=== PATIENT | female | born 1970 | race African-American/Black ===

== ENCOUNTER 2016-10-15 20:19 | Emergency (ER) | payer OTHER ==
[~2016-10-15] VITALS: Ht 165.1 cm; Wt 81.7 kg
[~2016-10-15 20:19] MED LIST: IRON159 MG; LIPITOR10 MG PO; PHENERGAN 25 MG25 M1 PO; PRILOSEC 20 MG20 MG PO; ULTRAM 50MG TAB50 MG PO
[2016-10-15 20:31] VITALS: BP 160/92
[2016-10-15] MEDS ORDERED: ZOCOR20 MG PO (20:34)
[2016-10-15] MEDS ORDERED: NAPROSYN500 MG PO (21:46)
[2016-10-15] MEDS ORDERED: NORFLEX100 MG PO (21:46)
[2016-10-15] MEDS ORDERED: ACYCLOVIR 400400 MG PO (21:46)
== END 2016-10-15 21:48 | disposition home or self-care (01) ==
LOC: ER 20:19
DX: M54.6 Pain in thoracic spine (principal); E78.00 Pure hypercholesterolemia, unspecified

== ENCOUNTER 2018-06-12 17:58 | Emergency (ER) | payer OTHER ==
[~2018-06-12] VITALS: Ht 165.1 cm; Wt 81.7 kg
[~2018-06-12 17:58] MED LIST changes: +ACYCLOVIR 400400 MG PO; +NAPROSYN500 MG PO; +NORFLEX100 MG PO; +ZOCOR20 MG PO
[2018-06-12] MEDS ORDERED: FLONASE 0.05%50 MCG NASAL (18:07)
[2018-06-12] MEDS ORDERED: ALLERGY EYE DROP5 ML OPHTHALMIC (19:05)
[2018-06-12] MEDS ORDERED: PREDNISONE 20 M20 MG PO (19:05)
[2018-06-12 19:07] VITALS: BP 174/75
[2018-06-12] MEDS ORDERED: HYDROCHLOROTH12.5 M1 PO (19:15)
== END 2018-06-12 19:19 | disposition home or self-care (01) ==
LOC: ER 17:58
DX: J30.9 Allergic rhinitis, unspecified (principal); H10.13 Acute atopic conjunctivitis, bilateral; E78.00 Pure hypercholesterolemia, unspecified

== ENCOUNTER 2018-12-13 12:01 | Emergency (ER) | payer OTHER ==
[~2018-12-13] VITALS: Ht 165.1 cm; Wt 79.4 kg
[~2018-12-13 12:01] MED LIST changes: +ALLERGY EYE DROP5 ML OPHTHALMIC; +FLONASE 0.05%50 MCG NASAL; +HYDROCHLOROTH12.5 M1 PO; +PREDNISONE 20 M20 MG PO
[2018-12-13] MEDS ORDERED: ZOCOR20 MG PO (12:52)
[2018-12-13 12:55] LABS: URINE BILIRUBIN NEGATIVE (Negative); URINE BLOOD 1+ (Negative); URINE CLARITY CLEAR; URINE COLOR YELLOW; URINE GLUCOSE-RANDOM* NEGATIVE (Negative); URINE KETONES NEGATIVE (Negative); URINE LEUKOCYTES-REFLEX NEGATIVE (Negative); URINE NITRITE-REFLEX NEGATIVE (Negative); URINE PROTEIN (DIPSTICK) NEGATIVE (Negative); URINE UROBILINOGEN 0.2 E.U./dl (0.2-1.0)
[2018-12-13 12:56] LABS: HEMOGLOBIN 12.4 gm/dL (12.0-15.0); MCH 31.4 pg (26.0-34.0); MCHC 33.4 g/dL (28.0-37.0); MCV 93.9 fL (80.0-100.0); PLATELET COUNT 194 thou/uL (150-400); RBC 3.94 mil/uL (4.20-5.00); RDW 24.7 % (10.5-14.5)
[2018-12-13 13:02] LABS: ANION GAP 7 mmol/L (7-16); BUN 6 mg/dL (7-18); CALCIUM 8.9 mg/dL (8.5-10.1); CHLORIDE 101 mmol/L (98-107); CO2 30 mmol/L (21-32); CREATININE 0.8 mg/dL (0.6-1.0); GLUCOSE 97 mg/dL (74-106); POTASSIUM 3.2 mmol/L (3.5-5.1); SODIUM 138 mmol/L (136-145)
[2018-12-13 13:05] LABS: BACTERIA-REFLEX None Seen /HPF (None Seen); CASTS None Seen /LPF (None Seen); CRYSTALS None Seen /LPF (None Seen); MUCUS 4-6 Moderate strn/LPF (None Seen); SQUAMOUS 4-10 Moderate /LPF (0-3); URINE RBC 0-2 Rare /HPF (0-2); URINE WBC-REFLEX 0-5 Rare /HPF (0-5)
[2018-12-13 13:12] LABS: ALBUMIN 3.5 g/dL (3.4-5.0); SGOT 33 U/L (15-37); SGPT 31 U/L (30-65); TOTAL BILIRUBIN 0.2 mg/dL (<0.1-1.0); TOTAL PROTEIN 7.2 g/dL (6.4-8.2); TROPONIN-I <0.06 ng/mL (<0.06)
[2018-12-13 13:23] LABS: ABSOLUTE NEUTROPHILS 3.8 thou/uL (1.4-8.2)
[2018-12-13 13:24] LABS: ANISOCYTOSIS 2+; LARGE PLATELETS SEVERAL; POLYCHROMASIA 1+
[2018-12-13] MEDS ORDERED: VALIUM2 MG PO (13:35)
[2018-12-13] MEDS ORDERED: ZOFRAN ODT4 MG DISSOLVE (13:35)
[2018-12-13 13:50] VITALS: BP 135/71
--- NOTE | 2018-12-14 11:51 | EKG ---
[address] [address] [place] [address] ELECTROCARDIOGRAM REPORT Name: PATSY MASON [facility]ENTER[id number] ������������������ Admission: 12/13/18 ������������������ Attend Phys: Discharge: 12/13/18 ������������������ Date of : 68 Report #: [id number] ����������������������������������������������������������������� [id number] THIS REPORT FOR: //name// [facility] ED Test Date: 2018-12-13 Test Time: 12:09:26 Pat Name: PATSY MASON Department: Room: Gender: F [employer]: HAYDEE : 1970 Requested By: Ronak Hunter Order Number: [id number] MD: Daniel Mckeon Measurements Intervals [place] Rate: 88 P: -4 [place]: 165 QRS: 16 QRSD: 87 T: 54 QT: 380 QTc: 460 Interpretive Statements Sinus rhythm Low voltage, precordial leads Nonspecific ST segment abnormalities Compared to ECG 11/30/2012 04:15:19 Low QRS voltage now present Poor R-wave progression no longer present Electronically Signed On 12-14-2018 11:50:57 CDT by Daniel Mckeon [email or web address] ��������������������������������������������� <ELECTRONICALLY SIGNED> ���������������������������������������� By: Daniel Mckeon MD ��������������������������������������������� 12/14/18 1150 1209 120 Daniel Mckeon MD /SASHA
== END 2018-12-13 13:50 | disposition home or self-care (01) ==
LOC: ER 12:01
PROVIDERS: Emergency Medicine
DX: R42 Dizziness and giddiness (principal); R11.2 Nausea with vomiting, unspecified; I10 Essential (primary) hypertension; E78.00 Pure hypercholesterolemia, unspecified

== ENCOUNTER 2019-10-03 20:48 | Emergency (ER) | payer OTHER ==
[~2019-10-03] VITALS: Ht 165.1 cm; Wt 81.7 kg
[~2019-10-03 20:48] MED LIST changes: +VALIUM2 MG PO; +ZOFRAN ODT4 MG DISSOLVE
[2019-10-03 21:45] LABS: ABSOLUTE NEUTROPHILS 3.5 thou/uL (1.4-8.2); EOSINOPHILS 1.3 % (0.0-3.0); HEMOGLOBIN 12.3 gm/dL (12.0-15.0); LYMPHOCYTES 38.9 % (24.0-44.0); MCH 29.3 pg (26.0-34.0); MCHC 33.1 g/dL (28.0-37.0); MCV 88.6 fL (80.0-100.0); MONOCYTES 5.3 % (1.0-8.0); PLATELET COUNT 185 thou/uL (150-400); POLYS 53.5 % (36.0-66.0); RBC 4.18 mil/uL (4.20-5.00); RDW 25.6 % (10.5-14.5); WBC 6.6 thou/uL (4.0-11.0)
[2019-10-03 21:53] LABS: CALCIUM 9.1 mg/dL (8.5-10.1); CREATININE 0.9 mg/dL (0.6-1.0); MAGNESIUM 2.2 mg/dL (1.8-2.4)
[2019-10-03 21:54] LABS: POTASSIUM 2.7 mmol/L (3.5-5.1)
[2019-10-03 22:15] LABS: LARGE PLATELETS OCCASIONAL
[2019-10-03 22:16] LABS: ANISOCYTOSIS 3+
[2019-10-03] MEDS ORDERED: KLOR-CON 1010 MEQ PO (22:53)
[2019-10-03 23:08] VITALS: BP 147/87
== END 2019-10-03 23:09 | disposition home or self-care (01) ==
LOC: ER 20:48
PROVIDERS: Emergency Medicine
DX: E87.6 Hypokalemia (principal); R10.9 Unspecified abdominal pain; I10 Essential (primary) hypertension; E78.00 Pure hypercholesterolemia, unspecified; Z79.899 Other long term (current) drug therapy

== ENCOUNTER → 2020-01-04 | Outpatient (CLI) | payer OTHER ==
[~2020-01-04] MED LIST changes: +KLOR-CON 1010 MEQ PO
== END ==
LOC: BC 09:54 → NUC 13:13 → BC 13:13
PROVIDERS: ATTEND Neuromusculoskeletal Medicine & OMM
DX: Z12.31 Encounter for screening mammogram for malignant neoplasm of breast (principal); M81.0 Age-related osteoporosis without current pathological fracture

== ENCOUNTER → 2020-01-20 | Outpatient (CLI) | payer OTHER ==
[~2020-01-20] MED LIST changes: +IRON325 M1 PO; +LISINOPRIL-HCT1 EACH PO
== END ==
LOC: LAB 07:31
PROVIDERS: ATTEND Student in an Organized Health Care Education/Training Program
DX: Z01.818 Encounter for other preprocedural examination (principal); Z11.59 Encounter for screening for other viral diseases

== ENCOUNTER → 2020-01-25 | Outpatient (CLI) | payer OTHER ==
[~2020-01-25] VITALS: Ht 167.6 cm; Wt 78.9 kg
--- NOTE | 2020-01-26 17:06 | PATH ---
[facility] [address] [place] [address] PATHOLOGY RPT PROCEDURE Name: PATSY KARIMI Room #: REG CLI M.R.#: [id number] Admission: 01/25/20 Date of : 68 Discharge: Report #: [id number] Path Case #: [id number] [facility] Accession Number: [id number] . 01 Material submitted: . colon - POLYP AT SIGMOID COLON. Modifiers: sigmoid . 01 Clinical history: . Screening; colon cancer . 02 Diagnosis: Polyp, at sigmoid colon, endoscopic biopsy: - Hyperplastic polyp. - Negative for dysplasia. (IUV:cain; 01/26/2020) QMS 01/26/2020 1300 Local . 02 Electronically signed: . Karen Hope MD, Pathologist NPI- [id number] . 01 Gross description: . The specimen is received in formalin, labeled "Primocarrie Karimi, polyp at sigmoid colon". Received are two segments of pale goss soft tissue ranging in size from 0.1 to 0.6 cm in maximum dimensions. The specimen is submitted entirely in cassette A1. (CAA; 01/25/2020) QAC/QAC 01/26/2020 1259 Local . 02 Pathologist provided ICD-10: K63.5 . 02 CPT . 573526 Specimen Comment: A courtesy copy of this report has been sent to [phone] Specimen Comment: [id number] Specimen Comment: Report sent to / DR GRAY Performed at: [address], [place] [id number] MD Hubert De Anda MD Phone: [phone] Performed at: [address] [id number] MD aKren Hope MD Phone: [phone]
== END | disposition home or self-care (01) ==
LOC: GI 08:38
PROVIDERS: ATTEND Internal Medicine Gastroenterology
DX: Z12.11 Encounter for screening for malignant neoplasm of colon (principal); K63.5 Polyp of colon; K64.8 Other hemorrhoids; I10 Essential (primary) hypertension; E78.00 Pure hypercholesterolemia, unspecified; F17.210 Nicotine dependence, cigarettes, uncomplicated; D64.9 Anemia, unspecified; Z98.890 Other specified postprocedural states; Z79.899 Other long term (current) drug therapy
CPT/HCPCS: 62110; 62900